=== PATIENT | female | born 1980 | race Caucasian/White ===

== ENCOUNTER → 2019-11-22 | Outpatient (CLI) | payer BC, OTHER ==
[~2019-11-22] MED LIST: ACYC-109; ALPR.5T PO; AZTH50T PO; BSP5T PO; CANASA PR; CIPR-225 PO; CITA40TA19 PO; CLN.1T PO; CPR500T PO; DCS100C; FEXO180T PO; FLUT1DIS26 IH; IBP800T; LABE100T2; LVB.63NB3; MESA1.2T PO; METH4TAB PO; METR500T PO; MMT17NA NS; MNTL10T PO; NEBI5TAB8 PO; ORTHOTRICYCLIN PO; OXC5T; PRD10T PO; PRD20T PO; RT-COMBINH IH; [UNRECOGNIZED DRUG - OTHER]
--- NOTE | 2019-11-22 12:08 | Diagnostic Imaging Report ---
EXAMINATION: Digital mammogram bilateral screening with CAD. INDICATION: Screening. COMPARISON: This study was compared to the prior exam of 08/13/2015. PERSONAL HISTORY: At this time, there are no current complaints. FINDINGS: The fibroglandular tissue in both breasts is heterogeneously dense. This does limit the sensitivity of this exam. Overall, there does not appear to have been any significant change when compared to the prior study. There is no primary or secondary sign of malignancy noted. IMPRESSION: 1. There is no evidence for malignancy. 2. The patient should have her annual bilateral screening mammogram on schedule in November 2020. ACR BI-RADS Category 1: Negative. Result letter will be mailed to the patient. Note: At least 10% of breast cancer is not imaged by mammography. Dictated by: Dictated on workstation # [id number]
== END ==
LOC: RAD 09:29
PROVIDERS: ATTEND Obstetrics & Gynecology
DX: Z12.31 Encounter for screening mammogram for malignant neoplasm of breast (principal)
CPT/HCPCS: 77063; 77067

== ENCOUNTER → 2020-12-13 | Outpatient (CLI) | payer BC ==
--- NOTE | 2020-12-17 13:36 | Diagnostic Imaging Report ---
INDICATION: Routine screening. COMPARISON: 11/22/2019 and 08/13/2015. TECHNIQUE: 2D and 3D bilateral screening mammography was performed with CAD. FINDINGS: Both breasts are heterogeneously dense, limiting the sensitivity of mammography. The parenchymal pattern appears stable. No mass or malignant appearing microcalcifications are seen. The axillae are unremarkable. IMPRESSION: No mammographic features suspicious for malignancy are identified. ACR BI-RADS Category 1: Negative. Result letter will be mailed to the patient. Note: At least 10% of breast cancer is not imaged by mammography. Dictated by: Dictated on workstation # [id number]
== END ==
LOC: RAD 08:30
PROVIDERS: ATTEND Obstetrics & Gynecology
DX: Z12.31 Encounter for screening mammogram for malignant neoplasm of breast (principal)
CPT/HCPCS: 77063; 77067